=== PATIENT | female | born 2000 | race Two or more races ===

== ENCOUNTER 2023-03-29 15:46 | Outpatient (REF) | payer MEDICAID, SELFPAY ==
[2023-04-01 16:39] LABS: TS Negative Control Passed; TS Panel A 0; TS Panel B 0; TS Positive Control Passed; TSpotTB Negative (Negative)
== END 2023-03-29 15:47 | disposition home or self-care (01) ==
LOC: HO.HHCL 15:46
PROVIDERS: Visit Provider Family Medicine
DX: Z11.1 Encounter for screening for respiratory tuberculosis (principal)
CPT/HCPCS: 36415; 86481

== ENCOUNTER 2023-04-02 10:57 | Outpatient (REF) | payer MEDICAID, SELFPAY ==
[2023-04-05 12:08] LABS: TS Negative Control Passed; TS Panel A 0; TS Panel B 0; TS Positive Control Passed; TSpotTB Negative (Negative)
== END 2023-04-02 10:58 | disposition home or self-care (01) ==
LOC: HO.HHCL 10:57
PROVIDERS: Visit Provider Family Medicine
DX: Z11.1 Encounter for screening for respiratory tuberculosis (principal)
CPT/HCPCS: 36415; 86481

== ENCOUNTER 2023-04-29 10:42 | Outpatient (REF) | payer MEDICAID, SELFPAY ==
[2023-04-29 13:48] LABS: Cholesterol 149 mg/dL (<200); HDL Cholesterol 61 mg/dL (>40); LDL Cholesterol Calculated 78 mg/dL (<100); Triglycerides 50 mg/dL (<150)
[2023-04-29 14:05] LABS: Reflex LDLD? No
[2023-04-30 03:42] LABS: Syphilis Screen Nonreactive (Nonreactive)
[2023-04-30 03:51] LABS: HBS Num1 11.42 mIU/mL (0-7.99); HBc Num1 0.15 S/CO (0.00-0.79); HBsAGNum1 0.39 S/CO (0.00-0.99); Hepatitis A Antibody IgM 0.14 Index (0-0.79); Hepatitis B Core Antibody Nonreactive (Nonreactive); Hepatitis B Surface Antigen Negative (Negative); ~HepC Num1 0.13 S/CO (0.00-0.79); ~Hepatitis A Antibody IgM Nonreactive (Nonreactive); ~Hepatitis C Antibody Nonreactive (Nonreactive)
[2023-04-30 04:08] LABS: HIV AB/AG Nonreactive (Nonreactive); HIV Num 1 0.04 S/CO (0.00-0.99)
[2023-04-30 04:32] LABS: HBS Num2 9.79 mIU/mL (0-7.99); HBS Num3 11.19 mIU/mL (0-7.99); ~Hepatitis B Surface Antibody GRAYZONE (Nonreactive)
[2023-05-02 05:08] LABS: TS Negative Control Passed; TS Panel A 2; TS Panel B 0; TS Positive Control Passed; TSpotTB Negative (Negative)
[2023-05-04 04:33] LABS: Rubeola IgG (Measles) >300.00 AU/mL
== END 2023-04-29 10:43 | disposition home or self-care (01) ==
LOC: HO.HHCL 10:42
PROVIDERS: Visit Provider Internal Medicine
DX: Z00.00 Encounter for general adult medical examination without abnormal findings (principal)
CPT/HCPCS: 36415; 80061; 86481; 86704; 86706; 86709; 86735; 86762; 86765; 86780; 86803; 87340; 87389